=== PATIENT | female | born 1975 | race Caucasian/White ===

== ENCOUNTER → 2016-12-23 | Outpatient (CLI) | payer BC ==
--- NOTE | 2016-12-23 13:26 | KCIC ---
PROCEDURE Right ankle radiographs, right knee radiographs. HISTORY Right knee and ankle pain for 4-5 months COMPARISON None FINDINGS Right ankle: 3 two views the right ankle are submitted. No acute fracture or dislocation is identified. There are very small dorsal and plantar calcaneal enthesophyte. Tibiotalar joint space is maintained. Right knee: Two views of the right knee are submitted. No acute fracture or dislocation is identified. There is mild osteoarthritic change of the medial compartment of the right knee. No joint effusion is identified. IMPRESSION 1. There are small posterior and plantar calcaneal enthesophytes. 2. There is mild osteoarthritic change of the right knee. Electronically signed by: Efrain Rosario MD (Dec 23, 2016 13:25:22)
--- NOTE | 2016-12-23 14:33 | KCIC ---
PROCEDURE MR of the left knee HISTORY Left knee pain. TECHNIQUE Standard noncontrast images are obtained. COMPARISON None FINDINGS No evidence of medial meniscal tear. No evidence lateral meniscal tear. The anterior and posterior cruciate ligaments are intact. Mild signal within the anterior cruciate ligament compatible with degeneration and a small cruciate ganglion. Posterior cruciate ligament is intact. Medial collateral ligament is intact. Iliotibial band, fibular collateral ligament, biceps femoris tendon and popliteus tendon are intact. The extensor mechanism is intact. Trace joint fluid. Mild chondromalacia of the patella. No bone lesion or acute fracture. No acute soft tissue injury. Trace Payne cyst. IMPRESSION 1. No meniscal tear or internal derangement. 2. Mild chondromalacia patella. Electronically signed by: Harinder Arzate MD (Dec 23, 2016 14:32:11)
== END | disposition home or self-care (01) ==
LOC: KCIC MRI 10:12
DX: M17.11 Unilateral primary osteoarthritis, right knee (principal); M25.562 Pain in left knee; M22.42 Chondromalacia patellae, left knee; M25.571 Pain in right ankle and joints of right foot
CPT/HCPCS: 73560; 73600; 73721